=== PATIENT | male | born 1955 | race Two or more races ===

== ENCOUNTER 2025-05-06 11:18 | Emergency (ER) | payer MEDICARE, SELFPAY ==
[2025-05-06 11:33] VITALS: BP 166/87; PULSE 86; RESP 18; TEMP 36.5; O2SAT 95
--- NOTE | 2025-05-06 11:58 | XR_ITS ---
Examination: CT abdomen and pelvis without contrast. Coronal 3-D reconstructions. Sagittal 2-D reconstructions. Date and time of exam:May 06, 2025, 1346 hours INDICATIONS: Lower abdominal pain and hematuria today CTDI: vol (mGy): 7.56 DLP: (mGycm): 479 Technique: Axial images of the abdomen have been obtained, 3 mm slice thickness Intravenous contrast material has not been administered. Low dose protocols were performed. One or more of the following dose reduction techniques were used; automated exposure control, adjustment of the mA and/or KV according to patient size, use of iterative reconstruction technique. Findings: Liver is irregular in contour Spleen not enlarged No gallstones No pancreatic or adrenal mass. Perinephric stranding Mild renal scar formation No renal or ureteral calculi, no hydronephrosis Aorta normal size No pericecal inflammatory change No bowel obstruction No diverticulitis 32 mm mass lateral bladder on this noncontrast study No significant prostatomegaly IMPRESSION: 32 mm mass posterior right lateral bladder, most consistent with bladder cancer Recommend urinary bladder sonography follow-up
--- NOTE | 2025-05-06 11:59 | PD.EDRME ---
Rapid Medical Screening Exam RME Arrival date/time: 05/06/25 11:18 70-year-old male presents emergency department complaints of hematuria patient reports he had episode 2 weeks ago reports he has concerns about hematuria Chief Complaint: Urogenital-Male Vital signs: Vital Signs Temperature 97.7 F 05/06/25 11:33 Pulse Rate 86 05/06/25 11:33 Respiratory Rate 18 05/06/25 11:33 Blood Pressure 166/87 H 05/06/25 11:33 Pulse Oximetry (%) 95 05/06/25 11:33 Oxygen Delivery Method Room Air 05/06/25 11:33
[2025-05-06 12:37] LABS: Basophils # (Auto) 0.1 Thou/mm3 (0.0-0.2); Basophils % (Auto) 1 % (0-2.5); Eosinophils # (Auto) 0.2 Thou/mm3 (0.0-0.5); Eosinophils % (Auto) 3 % (0-10); Hematocrit 43.0 % (41.0-53.0); Hemoglobin 14.8 g/dL (13.5-16.0); Immature Granulocytes Auto 0.03 Thou/mm3 (0.00-0.00); Lymphocytes # (Auto) 1.5 Thou/mm3 (1.0-4.8); Lymphocytes % (Auto) 25 % (10-50); Mean Corpuscular HGB Conc 34.4 g/dl (31.0-37.0); Mean Corpuscular Hemoglobin 30.6 pg (25.0-35.0); Mean Corpuscular Volume 89 fL (80-100); Monocytes # (Auto) 0.4 Thou/mm3 (0.0-0.8); Monocytes % (Auto) 6 % (0-12); Neutrophils # (Auto) 3.9 Thou/mm3 (1.8-7.7); Neutrophils % (Auto) 65 % (37-80); Nucleated Red Blood Cell # 0.00 Thou/mm3 (0.00-0.00); Nucleated Red Blood Cell % 0 /100 WBC (0); Platelet Count 233 Thou/mm3 (140-440); RDW Standard Deviation 40.9 fL (35.1-43.9); Red Blood Count 4.83 Miln/mm3 (4.50-5.90); White Blood Count 6.0 Thou/mm3 (3.8-10.6)
[2025-05-06 12:46] LABS: INR 1.0 (0.9-1.3); Partial Thromboplastin Time 27.3 Seconds (22.0-36.0); Prothrombin Time 10.6 Seconds (9.0-12.2)
[2025-05-06 12:59] LABS: Alanine Aminotransferase < 7 U/L (10-49); Albumin, Serum 4.0 gm/dL (3.4-4.8); Albumin/Globulin Ratio 1.8 (1.2-2.2); Alkaline Phosphatase 160 U/L (46-116); Anion Gap 7 (7-16); Aspartate Amino Transferase 16 U/L (0-34); BUN/Creatinine Ratio 11 Ratio (12-20); Bilirubin,Total 0.3 mg/dL (0.3-1.2); Blood Urea Nitrogen 8 mg/dL (9-23); Calcium 9.3 mg/dL (8.3-10.6); Calcium (Corrected) 9.3 mg/dL (8.5-10.1); Carbon Dioxide 29.5 mMol/L (20.0-31.0); Chloride 102 mMol/L (98-107); Creatinine (Component) 0.7 mg/dL (0.6-1.3); Globulin 2.2 gm/dL (2.3-3.5); Glucose 335 mg/dL (74-106); Osmolality,Calculated 286 (275-295); Potassium 4.0 mMol/L (3.4-5.1); Sodium 138 mMol/L (136-145); Total Protein 6.2 gm/dL (5.7-8.2); eGFR > 60 See Note
[2025-05-06 13:14] LABS: Collection Type, Urine Clean Catch; Squamous Epithelial Cell,Urine 0 /hpf (0-5)
[2025-05-06 13:27] LABS: Bilirubin,Urine Negative (Negative); Blood,Urine Negative (Negative); Clarity,Urine Clear (Clear/Hazy); Color,Urine Lt-Yellow (Lt Yel-Yel); Culture Indicated,Urine Not Indicated; Glucose, Urine 4+ (Negative); Ketones,Urine Negative (Negative); Leukocyte Esterase,Urine Negative (Negative); Nitrite,Urine Negative (Negative); PH,Urine 6.5 (5.0-7.0); Protein,Urine Negative (Neg - Trace); RBC,Urine 2 /hpf (0-3); Specific Gravity,Urine 1.028 (1.001-1.035); Urobilinogen,Urine Negative mg/dL (0.0-1.0); WBC,Urine 1 /hpf (0-5)
--- NOTE | 2025-05-06 15:07 | EDNOTE_ITS ---
ED Male Genitalurinary RME/HPI General Chief complaint: Urogenital-Male Stated complaint: Urinating blood clots X 10 days Time Seen by Provider: 05/06/25 14:20 Arrival date/time: 05/06/25 11:18 RME / HPI RME / HPI Narrative: 05/06/25 11:18 70-year-old male presents emergency department complaints of hematuria patient reports he had episode 2 weeks ago reports he has concerns about hematuria. It comes and goes, associated with dysuria. Patient denies any vomiting denies any dizziness denies any other complaints denies any history of cancer. Patient is not taking any blood thinner. Related Data Home Medications ?Medication ?Instructions ?Recorded ?Confirmed aspirin 81 mg tablet,delayed 81 mg PO QDAY 11/08/18 release (Adult Aspirin Regimen) cholecalciferol (vitamin D3) 25 1,000 unit PO QDAY 10/28 mcg (1,000 unit) capsule lisinopril 20 mg tablet 20 mg PO QDAY 11/08/18 metformin 500 mg tablet 500 mg PO BID 11/08/18 Previous Rx's ?Medication ?Instructions ?Recorded acetaminophen 650 mg 650 mg PO Q8H PRN fever or p ain 11/08/18 tablet,extended release #30 tabs ibuprofen 600 mg tablet 600 mg PO Q8H PRN fever or p ain 11/08/18 #30 tabs Allergies Allergy/AdvReac Type Severity Reaction Status Date / Time Penicillins Allergy Mild Fainting Verified 05/06/25 11:23 Review of Systems Review of Systems Narrative Review of Systems: Review of system reviewed and within normal limits except mentioned in HPI ED Exam Narrative Physical exam: VITAL SIGNS: Reviewed. GENERAL APPEARANCE: Alert and interactive, follows commands, no acute distress, HEAD AND FACE: Non-traumatic. ENT: PERRL, pink conjunctivitis, eyelid no trauma, Mucous membrane moist. NECK: Supple, nontender, no nuchal rigidity. CHEST: No tenderness, no crepitus, no paradoxical movement, no retractions. LUNGS: Clear, well ventilated, symmetric, no rales, no wheezing, no ronchi, no stridor, good breath sounds bilaterally. HEART: Regular rate, regular rhythm, no murmur, no gallops. ABDOMEN: Soft, positive bowel sounds, nondistended, no guarding, nontender, no rebound, no masses, RECTAL: Deferred. GENITAL: Deferred. NEUROLOGICAL: Gross motor function intact sensory function intact, Appropriate for age. MUSCULOSKELETAL: low back nontender, full range of motion. EXTREMITIES: Nontender, full range of motion. SKIN: Color pink, dry, no rash, no lacerations, no abrasions, no contusions. LYMPHATICS: Deferred. Course Quality Measures none Orders Category Date Time Status CT abdomen pelvis wo con Stat Exams 05/06/25 11:58 Completed CBC Stat Lab 05/06/25 12:18 Completed Comprehensive Metabolic Panel Stat Lab 05/06/25 12:18 Completed Partial Thromboplastin Time Stat Lab 05/06/25 12:18 Completed Prothrombin Time with INR Stat Lab 05/06/25 12:18 Completed UA, C/S IF [Urinalysis, C/S if Indicated] Stat Lab 05/06/25 13:01 Completed Vital Signs Vital signs: Vital Signs Temperature 97.7 F 05/06/25 11:33 Pulse Rate 86 05/06/25 11:33 Respiratory Rate 18 05/06/25 11:33 Blood Pressure 166/87 H 05/06/25 11:33 Pulse Oximetry (%) 95 05/06/25 11:33 Oxygen Delivery Method Room Air 05/06/25 11:33 Urogenital - Male MDM Narrative MDM Narrative:: 70-year-old male presents emergency department complaints of hematuria patient reports he had episode 2 weeks ago reports he has concerns about hematuria. It comes and goes, associated with dysuria. Patient denies any vomiting denies any dizziness denies any other complaints denies any history of cancer. Patient is not taking any blood thinner. Patient's workup today is negative for sign of anemia urinalysis no UTI. Patient CT scan of the abdomen showed bladder mass possibly malignancy. Results discussed with the patient, patient was advised to see PCP tomorrow and for re ferral to urologist to rule out bladder malignancy. Patient agrees with the plan. Patient was also given a copy of his CT scan of the abdomen pelvis. Patient data External records reviewed:: None Clinical information provided by:: patient Social determinants that could affect healthcare access:: none Patient has the following chronic illnesses:: None How is presenting disease/condition affected by chronic disease/condition?: no chronic disease Evaluation data The following diagnostics were reviewed and interpreted by me:: lab results and radiology exam(s) Lab and/or radiology exams considered but not ordered:: None Interpretation Summary: None Medications / Prescriptions Medications or Prescriptions considered but not ordered:: None Medication administrations:: None Consultations Consultation(s) initiated? (list below): No Diagnosis Urogenital Male Differential Diagnosis: urinary tract infection and other (Hematuria, bladder mass) Most likely diagnosis given after review of the tests above:: Hematuria, bladder mass Admission Indicated Admission indicated?: not indicated Explain why admission is indicated or not indicated:: None Admission Request Was there a request for admission?: No Disposition Plan Disposition Plan: Discharge Discharge Attestation Discharge Attestation: The patient was given an opportunity to ask questions and understood the discharge instructions. Discharge instructions specifically effects, indications for sooner follow up or return to the emergency department, and the expected course of current diagnosis. Patient condition: Stable Discharge Plan Plan Patient Disposition: HOME (Self Care) Discharge Disposition comment: Stable Prescriptions/Referrals Prescriptions/Med Rec: No Action metformin 500 mg tablet 500 mg PO BID lisinopril 20 mg tablet 20 mg PO QDAY aspirin [Adult Aspirin Regimen] 81 mg tablet,delayed release (DR/EC) 81 mg PO QDAY cholecalciferol (vitamin D3) 1,000 unit capsule 1,000 unit PO QDAY acetaminophen 650 mg tablet extended release 650 mg PO Q8H PRN (Reason: fever or pain) Qty: 30 0RF Rx Instructions: swallow whole; do not crush, chew, break, dissolve, cut, or open ibuprofen 600 mg tablet 600 mg PO Q8H PRN (Reason: fever or pain) Qty: 30 0RF Rx Instructions: prn pain / fever Referrals: Maxim Reid MD [Primary Care Provider] - In 1 week Problem List Clinical Impression: Hematuria, Bladder mass Patient/Caregiver Discharge Instructions Discharge Activity: activity as tolerated Education Materials: ED Hematuria Additional Instructions: Thank you for the opportunity for serving you today. You are stable for discharged . You are advised to: Follow-up with your PCP in 1 to 2 days and asked for referral to urologist due to bladder mass suspect malignancy Return to ED for worsening of symptoms Increase oral fluids Print Language: Luxembourgish Stand Alone Forms: Antonina Award Info., Patient Portal Info Letter KIERSTEN/CONSTANTINO Supervising Physician KIERSTEN/CONSTANTINO Supervising Physician: MD Kalyani
== END 2025-05-06 16:16 | disposition home or self-care (01) ==
PROVIDERS: Nurse Practitioner Primary Care; Emergency Provider Family Medicine; PCP Family Medicine
DX: N32.89 Other specified disorders of bladder (principal)
CPT/HCPCS: 36415; 74176; 80053; 81001; 85025; 85610; 85730; 99283

== ENCOUNTER → 2025-06-17 | Outpatient (BNVA) | payer MEDICARE, SELFPAY | END | disposition home or self-care (01) | PROVIDERS: PCP Family Medicine; Referring Provider Family Medicine; Visit Provider Urology | DX: N40.1 Benign prostatic hyperplasia with lower urinary tract symptoms (principal); N13.8 Other obstructive and reflux uropathy; R31.0 Gross hematuria; N32.89 Other specified disorders of bladder; I10 Essential (primary) hypertension; E11.9 Type 2 diabetes mellitus without complications; F17.210 Nicotine dependence, cigarettes, uncomplicated; Z71.6 Tobacco abuse counseling; Z71.3 Dietary counseling and surveillance; E66.9 Obesity, unspecified; Z68.29 Body mass index [BMI] 29.0-29.9, adult | CPT/HCPCS: 81003; 99213; G0463 ==

== ENCOUNTER → 2025-07-05 | Outpatient (CLI) | payer MEDICARE, SELFPAY ==
[2025-07-05 20:33] LABS: Prostate Specific Antigen 0.36 ng/mL (0-4.00)
== END | disposition home or self-care (01) ==
PROVIDERS: PCP Family Medicine; Referring Provider Urology; Visit Provider Urology
DX: N40.1 Benign prostatic hyperplasia with lower urinary tract symptoms (principal)
CPT/HCPCS: 36415; 84153

== ENCOUNTER 2025-07-07 09:25 | Day surgery (SDC) | payer MEDICARE, SELFPAY ==
[2025-07-06 12:14] VITALS: BMI 28.3
--- NOTE | 2025-07-06 12:31 | EKG_ITS ---
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
--- NOTE | 2025-07-06 15:30 | SUR.PREOP ---
Pt notified to come in at 0930 tomorrow.
[2025-07-06 17:54] LABS: Alanine Aminotransferase < 7 U/L (10-49); Albumin, Serum 4.5 gm/dL (3.4-4.8); Albumin/Globulin Ratio 2.0 (1.2-2.2); Alkaline Phosphatase 147 U/L (46-116); Anion Gap 7 (7-16); Aspartate Amino Transferase 15 U/L (0-34); BUN/Creatinine Ratio 18 Ratio (12-20); Bilirubin,Total 0.5 mg/dL (0.3-1.2); Blood Urea Nitrogen 14 mg/dL (9-23); Calcium 9.2 mg/dL (8.3-10.6); Calcium (Corrected) 9.2 mg/dL (8.5-10.1); Carbon Dioxide 29.6 mMol/L (20.0-31.0); Chloride 103 mMol/L (98-107); Creatinine (Component) 0.8 mg/dL (0.6-1.3); Estimated Creatinine Clearance 76.8 mL/min (>60); Globulin 2.2 gm/dL (2.3-3.5); Glucose 254 mg/dL (74-106); Osmolality,Calculated 288 (275-295); Potassium 4.4 mMol/L (3.4-5.1); Sodium 140 mMol/L (136-145); Total Protein 6.7 gm/dL (5.7-8.2); eGFR > 60 See Note
[2025-07-07] VITALS (8 sets, daily range): BP systolic 122–138; BP diastolic 75–93; PULSE 86–93; RESP 16–20; TEMP 36.1–36.4; O2SAT 97–100; BMI 29.2
--- NOTE | 2025-07-07 10:30 | CHAP ---
Visited with patient and had prayer.
--- NOTE | 2025-07-07 11:37 | SUR.PHASEI ---
1137 Patient arrived to recovery sleeping comfortably in [facility]- able to arouse with verbal prompting then drifts back to sleep, on oxygen 8L via oxy mask, breathing unlabored, vital signs stable, denies pain and nausea, urinary catheter 16F in place with leg secure; draining to gravity, report received from Naveen STERN and Aldo TUTTLE
--- NOTE | 2025-07-07 11:46 | ESOP_ITS ---
Date of Procedure 07/07/25 Pre Op Diagnosis BPH with urinary obstruction and LUTS, gross hematuria, possible bladder tumor and balanitis Post Op Diagnosis Same large bladder tumor occupying right posterior lateral wall of the bladder and right ureteral orifice, bladder neck tumor which was bleeding, there were small tumors in the bladder posterior bladder wall near the dome obstructive bilateral prostatic lobes, balanitis no phimosis Procedure Cystoscopic examination and fulguration of the bladder neck tumor which was bleeding to stop the bleeding and insertion of Miller catheter Findings 4 to 5 cm tumor right posterior lateral wall of the bladder, bladder neck tumor with bleeding, small bladder tumor posterior bladder wall near the dome of the bladder, BPH with obstructive bilateral prostatic lobe Procedure Description Indication for procedure this is a 70-year-old gentleman this patient has a history of smoking. He had intermittent gross hematuria he had a CAT scan of the abdomen and pelvis done this revealed a filling defect posterior lateral bladder wall right side rule out bladder tumor patient was recommended above pro cedure procedure and complications were discussed with patient in great detail informed consent is obtained Patient was brought to the operating room in a satisfactory condition after appropriate premedication was put on the operating table in a spine position he was appropriately identified by surgeon operating room staff site scope and indications of the procedure were reconfirmed with the patient informed consent is obtained He was put on the operating table in a spine position general anesthesia was given uneventfully patient was positioned in a dorsal lithotomy position parts were prepped and draped in the usual sterile fashion. This patient had balanitis. A #21 cystoscope was introduced into the bladder per urethra anterior urethra revealed no urethral stricture prostatic urethra revealed obstructive prostate lobe there was a tumor in the bladder neck area on the right side which was bleeding fulguration was carried out. No active bleeding was seen inside of the bladder and all the quadrant was carried out left ureteral orifice was effluxing clear urine right ureteral orifice was not identified he had a very large bladder tumor 4 to 5 cm occupying the posterior lateral bladder wall on the right side and there were small small tumor in the posterior bladder wall near the dome of the bladder. After fulguration of bladder neck tumor No active bleeding was seen at this time I inserted #16 Miller catheter after instrument was withdrawn gently balloon was inflated with 10 cc of water. Patient is going to be scheduled for TURBT and possible TURP procedure and complications are discussed with the patient and he is scheduled for the same under general anesthesia Anesthesia GETA Pathology / specimen None Estimated Blood Loss 2 Condition Stable Disposition PACU Surgeon Hugo Guadalupe MD Surgical Staff Operation Date: 07/07/25 11:45 Case Staff RETAIL PROPERTY MANAGER: Ed Rodriguez
--- NOTE | 2025-07-07 12:24 | SUR.PHASEII ---
1224 Dr. Guadalupe at bedside talking with patient, verbal order read-back received to discontinue arceo catheter, will patient order in EMR and follow order
--- NOTE | 2025-07-07 12:28 | SUR.PHASEII ---
1228 arceo catheter discontinued per MD order, patient tolerated well
--- NOTE | 2025-07-07 12:49 | SUR.PHASEII ---
patient disconnected from vital signs machine, dressed in his clothing, IV discontinued and is awaiting his ride
--- NOTE | 2025-07-07 13:30 | SUR.PHASEII ---
1330 patients ride arrived, discharge instructions given to patient and patients uncle, uncle signed discharge instructions. patient given all his belongings prior to discharge, transported via wheelchair and left in a private vehicle.
== END 2025-07-07 13:41 | disposition home or self-care (01) ==
PROVIDERS: Anesthesiology; PCP Family Medicine; Referring Provider Urology; Visit Provider Urology
PROC: 0T7B8ZZ Dilation of Bladder, Via Natural or Artificial Opening Endoscopic (ICD-10-PCS; CPT 52240; principal; 2025-07-07 11:30)
DX: D49.4 Neoplasm of unspecified behavior of bladder (principal); N40.1 Benign prostatic hyperplasia with lower urinary tract symptoms; N13.8 Other obstructive and reflux uropathy; R35.0 Frequency of micturition; N48.1 Balanitis; Z01.810 Encounter for preprocedural cardiovascular examination; R31.0 Gross hematuria
CPT/HCPCS: 52240; 36415; 80053; 93005; A4217; A4649; J1580; J2250; J2704; J3010

== ENCOUNTER 2025-07-21 14:34 | Observation (INO) | payer MEDICARE, SELFPAY ==
[2025-07-19 11:56] VITALS: BMI 29.5
[2025-07-19 14:01] LABS: Alanine Aminotransferase 13 U/L (10-49); Albumin, Serum 4.5 gm/dL (3.4-4.8); Albumin/Globulin Ratio 2.0 (1.2-2.2); Alkaline Phosphatase 143 U/L (46-116); Anion Gap 7 (7-16); Aspartate Amino Transferase 21 U/L (0-34); BUN/Creatinine Ratio 19 Ratio (12-20); Bilirubin,Total 0.5 mg/dL (0.3-1.2); Blood Urea Nitrogen 15 mg/dL (9-23); Calcium 9.1 mg/dL (8.3-10.6); Calcium (Corrected) 9.1 mg/dL (8.5-10.1); Carbon Dioxide 29.4 mMol/L (20.0-31.0); Chloride 104 mMol/L (98-107); Creatinine (Component) 0.8 mg/dL (0.6-1.3); Estimated Creatinine Clearance 78.3 mL/min (>60); Globulin 2.2 gm/dL (2.3-3.5); Glucose 184 mg/dL (74-106); Osmolality,Calculated 285 (275-295); Potassium 4.2 mMol/L (3.4-5.1); Sodium 140 mMol/L (136-145); Total Protein 6.7 gm/dL (5.7-8.2); eGFR > 60 See Note
[2025-07-21] VITALS (21 sets, daily range): BP systolic 121–144; BP diastolic 70–89; PULSE 68–104; RESP 14–92; TEMP 36.1–36.5; O2SAT 94–100; BMI 29.3
--- NOTE | 2025-07-21 07:25 | CHAP ---
Patient was sleeping. Prayed quietly by bed.
[2025-07-21] MEDS: ALBUTEROL RT 2.5 MG/3 ML NEBU INH (07:47)
[2025-07-21] MEDS: RINGERS LACTATED 1000 ML 1,000 ML 20 ML IV (07:48)
--- NOTE | 2025-07-21 10:45 | SUR.PHASEI ---
pt received from OR in recovery bay 5. pt asleep but responds to voice, breathing unlabored on oxymask 8l. v/s stable. pt has 22fr [address]. report received from Adlo TUTTLE and Dr. Shelton.
--- NOTE | 2025-07-21 10:49 | PD.SUROPNT ---
Date of Procedure 07/21/25 Pre Op Diagnosis Gross hematuria, large bladder tumor occupying right posterior lateral wall right ureteral orifice not identified, BPH with urinary obstruction and obstructive prostate gland large median lobe Post Op Diagnosis Same Procedure Cystoscopic examination transurethral section of the bladder tumor and transurethral section of prostate gland partial Findings Obstructive prostate gland with a large median lobe large bladder tumor occupying right posterolateral wall 4 to 5 cm with extension into the bladder neck area and prostatic urethra Procedure Description Indication for procedure this is a 70-year-old gentleman. This patient has history of gross hematuria he underwent urological workup he had a cystoscopic examination done which revealed a obstructive prostate gland and large bladder tumor posterior lateral wall right side occupying the ureteral orifice with extension into bladder neck and prostatic urethra patient was recommended above procedure procedure and complications were discussed with patient in great detail informed consent is obtained Patient was brought to the operating room in a satisfactory condition after appropriate premedication he was appropriately identified by surgeon and operating room staff site scope and indication of the procedure were reconfirmed with the patient. He was positioned in a dorsal lithotomy position and he received perioperative antibiotics. 25 Corley resectoscope was introduced into the bladder. Per urethra examination of anterior urethra with out any urethral stricture prostatic urethra revealed obstructive prostate gland with large median lobe tumor seems to be extending into the bladder neck and prostatic urethra. Next the resectoscope was introduced into the bladder examination of bladder and all the quadrant was carried out there were 4 to 5 cm papillary tumor 2 in number occupying posterior lateral wall right side ureteral orifice could not be identified. With electric cautery with the cutting current I resected the tumor. And I resected the tumor in the bladder neck area right side and also part of the prostate gland. Fulguration of the base of the tumor was carried out. There was no active bleeding seen bladder was irrigated return of the urine was light color. Instrument was withdrawn gently 22 Indonesian Miller catheter was inserted into the bladder balloon was inflated with 20 cc of water bladder was again irrigated the return of the urine was light color patient having tolerated the procedure well was sent to recovery room in a satisfactory condition he will be admitted in the hospital for observation for 24 hours Anesthesia GETA Pathology / specimen Other (Bladder tumor bladder tissue, prostatic tissue) Estimated Blood Loss 30 Condition Stable Disposition PACU Surgeon Hugo Guadalupe MD Surgical Staff Operation Date: 07/21/25 07:30 Case Staff Anesthesiologist: Tavo Shelton
[2025-07-21] MEDS: FUROSEMIDE INJ 10 MG/ML VIAL 2 ML 20 MG IVP (11:10)
[2025-07-21] MEDS: fentaNYL CIT INJ 50 mCg/ML AMP 2ML 25 MCG IVP ×4 (11:39→14:18)
--- NOTE | 2025-07-21 11:50 | SUR.PHASEII ---
Received report on pt. s/p surgery from Mahesh TUTTLE. Pt. is AAOX3, c/o pain to lower abdomen and urgency to urinate and defecate. Educated pt. he has a catheter, bed parker placed under pt. Will provide pain medication per order.
--- NOTE | 2025-07-21 13:11 | PD.RESHP ---
Documentation for date of: 07/21/25 [facility] History of Present Illness History of present illness: 70-year-old male with a history of gross hematuria and a large bladder tumor, which was occupying the right posterior lateral wall and extending into the bladder neck and prostatic urethra. The patient underwent a cystoscopic examination, which revealed an obstructive prostate gland with a large median lobe, and a bladder tumor approximately 4-5 cm in size. The patient had no significant complications during the procedure, which included resection of the bladder tumor and part of the prostate gland. Post-operatively, he is being observed for 24 hours for any complications, though he has tolerated the procedure well so far. Review of Systems: Negative unless stated above Past medical history: Hypertension, diabetes. Surgical history: Patient denied, poor historian. Meds: Lisinopril, metformin (patient did not take). Allergies: Penicillin, unknown reaction. Exam Vital Signs Temp Pulse Resp BP Pulse Ox O2 Flow Rate 97.6 F 84 14 127/84 96 2 07/21/25 11:30 07/21/25 13:00 07/21/25 13:00 07/21/25 13:00 07/21/25 13:00 07/21/25 13:00 Narrative Exam General: The patient is alert, cooperative, but not the best historian. No acute distress noted. HEENT: No signs of infection or distress. Cardiovascular: Normal S1, S2, no murmurs. Respiratory: Clear to auscultation bilaterally. Abdomen: Soft, non-tender, no distention. Genitourinary: Miller catheter in place with light-colored urine output. No signs of infection. Extremities: No edema. Full range of motion. Neurological: Alert and oriented, no focal deficits. Results: Labs 07/22/25 05:00 07/22/25 05:17 Quality Measures Quality Measures VTE prophylaxis Advance care planning discussed with:: patient Medications Home Medications and Allergies Home Medications ?Medication ?Instructions ?Recorded ?Confirmed ?Type lisinopril 40 mg tablet 40 mg PO QDAY 07/06/25 07/21/25 History Allergies Allergy/AdvReac Type Severity Reaction Status Date / Time Penicillins Allergy Mild Fainting Verified 07/19/25 11:54 Visit Medications Acetaminophen (Acetaminophen 325 Mg Tablet) 650 mg PO Q6H PRN PRN Reason: Fever >101.5 Stop: 08/20/25 12:23 Finasteride (Finasteride 5 Mg Tablet) 5 mg PO QDAY [facility] Stop: 08/20/25 12:44 Lactated Ringer's (Lactated Ringers) 1,000 mls @ 20 mls/hr IV .Q24H ONE Stop: 07/22/25 05:59 Last Infusion: 07/21/25 11:28 Dose: Infused Morphine Sulfate (Morphine Sulf Inj 4 Mg/Ml Vial) 2 mg IVP Q4H PRN PRN Reason: PAIN SCALE 7-10 (Severe Stop: 07/26/25 12:23 Ondansetron HCl (Ondansetron Inj 2 Mg/Ml Inj 2 Ml) 4 mg IVP Q6H PRN; Protocol PRN Reason: NAUSEA OR VOMITING Stop: 08/20/25 12:23 Oxycodone/Acetaminophen (Oxycodone/Apap 5/325 Tablet) 1 tab PO Q6H PRN PRN Reason: PAIN SCALE 4-6 (Moderate Stop: 07/26/25 12:23 Pantoprazole Sodium (Pantoprazole Inj 40 Mg Vial) 40 mg IVP QDAY [facility] Stop: 08/21/25 08:59 Tamsulosin HCl (Tamsulosin Hcl 0.4 Mg Capsule) 0.4 mg PO QDAY [facility] Stop: 08/20/25 12:44 Discontinued Medications Albuterol (Albuterol Rt 2.5 Mg/3 Ml Nebu) 2.5 mg INH X1 ONE Stop: 07/21/25 07:43 Last Admin: 07/21/25 07:47 Dose: 2.5 mg Fentanyl Citrate (Fentanyl Cit Inj 50 Mcg/Ml Amp 2ml) 25 mcg IVP Q5M PRN; Protocol PRN Reason: PAIN SCALE 7-10 (Severe Stop: 07/21/25 12:53 Last Admin: 07/21/25 12:09 Dose: 25 mcg Fentanyl Citrate (Fentanyl Cit Inj 50 Mcg/Ml Amp 2ml) 25 mcg IVP Q5M PRN; Protocol PRN Reason: PAIN SCALE 4-6 (Moderate Stop: 07/21/25 12:53 Last Admin: 07/21/25 11:39 Dose: 25 mcg Fentanyl Citrate (Fentanyl Cit Inj 50 Mcg/Ml Amp 2ml) 25 mcg IVP Q5M PRN; Protocol PRN Reason: PAIN SCALE 1-3 (mild Stop: 07/21/25 12:53 Furosemide (Furosemide Inj 10 Mg/Ml 4ml Vial) 20 mg IVP X1 ONE Stop: 07/21/25 10:51 Last Admin: 07/21/25 11:28 Dose: Not Given Furosemide (Furosemide Inj 10 Mg/Ml Vial 2 Ml) 20 mg IVP X1 ONE Stop: 07/21/25 11:16 Last Admin: 07/21/25 11:10 Dose: 20 mg Gentamicin Sulfate 160 mg/ (Sodium Chloride) 104 mls @ 100 mls/hr IV X1 ONE Stop: 07/21/25 07:02 Mitomycin (Mitomycin Bladder Inst 20 Mg/ 40 Ml Syringe) 40 mg IS X1 ONE Stop: 07/21/25 08:52 Last Admin: 07/21/25 11:29 Dose: Not Given Ondansetron HCl (Ondansetron Inj 2 Mg/Ml Inj 2 Ml) 4 mg IVP X1 ONE Stop: 07/21/25 10:54 Assessment & Plan Plan 70-year-old male post-op for transurethral resection of a bladder tumor and prostate gland, stable with normal urine output and no complications, being observed for 24 hours. #Post-operative status s/p Bladder tumor and partial prostate resection The patient is stable post-operatively with no signs of complications. Urine output is normal, and there is no active bleeding. Miller catheter in place with light-colored urine output. Plan: -Continue monitoring for 24 hours post-op. -Keep Miller catheter in place, ensure light hydration, and monitor for any signs of infection or bleeding. -Pain management: Continue [place] 5, morphine for breakthrough. #Hypertension The patient has a history of hypertension, currently managed on lisinopril. Current BP: 127/84, which is within normal limits for today. Plan: -Continue lisinopril as prescribed. -Monitor blood pressure. #Diabetes Mellitus The patient stopped metformin due to side effects. Blood glucose this morning was 158 mg/dL. Plan: -Start sliding scale insulin as needed for glucose control during hospitalization. -ACHS checks. -Follow-up with PCP regarding management. ----- Plan discussed with attending physician Dr. Trammell and senior resident Dr. Kayla Song MD PGY-1 Internal Medicine Attending Provider Attestation/Addendum I have examined the patient, reviewed labs and imaging findings, discussed the case with the resident(s), and reviewed entered orders. I agree with the plan of care as outlined in this note, with these additional summaries/recommendations: After examination of the patient and review of the clinical data, I feel that this patient needs admission to the hospital for further treatment and evaluation. Patient is a 70-year-old male with a medical history of BPH, primary hypertension, and bladder mass who presents to [facility] emergency department on 07/21/2025 for cystoscopic examination transurethral resection of bladder tumor and transurethral section of prostate gland which was partial. Findings revealed obstructive prostate gland with a large median lobe and large bladder tumor occupying right posterior lateral wall with extension into the bladder neck area. Hospitalist team was contacted by urology for observation of gross hematuria and pain management. Patient will be admitted to observation and we will monitor overnight. Continue pain management and home antihypertensives. Patient updated on the plan and agreement. All questions answered to satisfaction. Please see residents note for additional details and management. Dr. Jp MD
--- NOTE | 2025-07-21 14:35 | SUR.PHASEII ---
pt awake and alert, breathing unlabored on room air. v/s stable. pt has 22fr [address] in place. v/s stable. report called to Susy Macedo. pt will be transferred to room at this time.
[2025-07-21] MEDS: FINASTERIDE 5 MG TABLET PO (16:09)
[2025-07-21] MEDS: TAMSULOSIN HCL 0.4 MG CAPSULE PO (16:09)
[2025-07-21 16:15] LABS: Basophils # (Auto) 0.0 Thou/mm3 (0.0-0.2); Basophils % (Auto) 0 % (0-2.5); Eosinophils # (Auto) 0.0 Thou/mm3 (0.0-0.5); Eosinophils % (Auto) 0 % (0-10); Hematocrit 42.7 % (41.0-53.0); Hemoglobin 14.8 g/dL (13.5-16.0); Immature Granulocytes Auto 0.03 Thou/mm3 (0.00-0.00); Lymphocytes # (Auto) 0.5 Thou/mm3 (1.0-4.8); Lymphocytes % (Auto) 6 % (10-50); Mean Corpuscular HGB Conc 34.7 g/dl (31.0-37.0); Mean Corpuscular Hemoglobin 30.5 pg (25.0-35.0); Mean Corpuscular Volume 88 fL (80-100); Monocytes # (Auto) 0.1 Thou/mm3 (0.0-0.8); Monocytes % (Auto) 1 % (0-12); Neutrophils # (Auto) 8.2 Thou/mm3 (1.8-7.7); Neutrophils % (Auto) 93 % (37-80); Nucleated Red Blood Cell # 0.00 Thou/mm3 (0.00-0.00); Nucleated Red Blood Cell % 0 /100 WBC (0); Platelet Count 255 Thou/mm3 (140-440); RDW Standard Deviation 39.0 fL (35.1-43.9); Red Blood Count 4.85 Miln/mm3 (4.50-5.90); White Blood Count 8.8 Thou/mm3 (3.8-10.6)
[2025-07-21 16:56] LABS: Alanine Aminotransferase 10 U/L (10-49); Albumin, Serum 4.3 gm/dL (3.4-4.8); Albumin/Globulin Ratio 2.0 (1.2-2.2); Alkaline Phosphatase 133 U/L (46-116); Anion Gap 8 (7-16); Aspartate Amino Transferase 19 U/L (0-34); BUN/Creatinine Ratio 11 Ratio (12-20); Bilirubin,Total 0.7 mg/dL (0.3-1.2); Blood Urea Nitrogen 9 mg/dL (9-23); Calcium 8.7 mg/dL (8.3-10.6); Calcium (Corrected) 8.7 mg/dL (8.5-10.1); Carbon Dioxide 27.7 mMol/L (20.0-31.0); Chloride 100 mMol/L (98-107); Creatinine (Component) 0.8 mg/dL (0.6-1.3); Estimated Creatinine Clearance 78.5 mL/min (>60); Globulin 2.2 gm/dL (2.3-3.5); Glucose 273 mg/dL (74-106); Osmolality,Calculated 280 (275-295); Potassium 4.2 mMol/L (3.4-5.1); Sodium 136 mMol/L (136-145); Total Protein 6.5 gm/dL (5.7-8.2); eGFR > 60 See Note
--- NOTE | 2025-07-21 20:02 | PC.NURSE ---
Report called to Sub=Acute to the Charge Nurse Lawrence TUTTLE.
[2025-07-21] MEDS: INSULIN LISPRO (AdmeLOG) 1 UNIT/0.01 ML UNIT SC (21:11)
[2025-07-22] VITALS: BP 132/77; PULSE 102; RESP 12; TEMP 36.1; O2SAT 95
[2025-07-22 03:40] VITALS: BP 116/77; PULSE 97; RESP 14; TEMP 36.1; O2SAT 96
[2025-07-22 04:00] VITALS: PULSE 97
[2025-07-22 06:07] LABS: Basophils # (Auto) 0.0 Thou/mm3 (0.0-0.2); Basophils % (Auto) 0 % (0-2.5); Eosinophils # (Auto) 0.0 Thou/mm3 (0.0-0.5); Eosinophils % (Auto) 0 % (0-10); Hematocrit 40.9 % (41.0-53.0); Hemoglobin 14.2 g/dL (13.5-16.0); Immature Granulocytes Auto 0.02 Thou/mm3 (0.00-0.00); Lymphocytes # (Auto) 1.7 Thou/mm3 (1.0-4.8); Lymphocytes % (Auto) 12 % (10-50); Mean Corpuscular HGB Conc 34.7 g/dl (31.0-37.0); Mean Corpuscular Hemoglobin 30.8 pg (25.0-35.0); Mean Corpuscular Volume 89 fL (80-100); Monocytes # (Auto) 0.9 Thou/mm3 (0.0-0.8); Monocytes % (Auto) 6 % (0-12); Neutrophils # (Auto) 11.2 Thou/mm3 (1.8-7.7); Neutrophils % (Auto) 81 % (37-80); Nucleated Red Blood Cell # 0.00 Thou/mm3 (0.00-0.00); Nucleated Red Blood Cell % 0 /100 WBC (0); Platelet Count 269 Thou/mm3 (140-440); RDW Standard Deviation 38.7 fL (35.1-43.9); Red Blood Count 4.61 Miln/mm3 (4.50-5.90); White Blood Count 13.9 Thou/mm3 (3.8-10.6)
[2025-07-22 07:04] VITALS: PULSE 100; RESP 18; RESP 96
[2025-07-22 07:05] LABS: Alanine Aminotransferase 8 U/L (10-49); Albumin, Serum 4.1 gm/dL (3.4-4.8); Albumin/Globulin Ratio 2.2 (1.2-2.2); Alkaline Phosphatase 116 U/L (46-116); Anion Gap 10 (7-16); Aspartate Amino Transferase 15 U/L (0-34); BUN/Creatinine Ratio 21 Ratio (12-20); Bilirubin,Total 0.7 mg/dL (0.3-1.2); Blood Urea Nitrogen 15 mg/dL (9-23); Calcium 8.8 mg/dL (8.3-10.6); Calcium (Corrected) 8.8 mg/dL (8.5-10.1); Carbon Dioxide 26.7 mMol/L (20.0-31.0); Chloride 101 mMol/L (98-107); Creatinine (Component) 0.7 mg/dL (0.6-1.3); Estimated Creatinine Clearance 92.7 mL/min (>60); Globulin 1.9 gm/dL (2.3-3.5); Glucose 170 mg/dL (74-106); Magnesium 1.9 mg/dL (1.6-2.6); Osmolality,Calculated 280 (275-295); Potassium 3.9 mMol/L (3.4-5.1); Sodium 138 mMol/L (136-145); Total Protein 6.0 gm/dL (5.7-8.2); eGFR > 60 See Note
[2025-07-22] MEDS: INSULIN LISPRO (AdmeLOG) 1 UNIT/0.01 ML UNIT SC ×2 (07:31→11:43)
[2025-07-22 08:00] VITALS: BP 124/72; PULSE 101; PULSE 94; RESP 20; TEMP 36.2; O2SAT 95
[2025-07-22] MEDS: FINASTERIDE 5 MG TABLET PO (08:39)
[2025-07-22] MEDS: TAMSULOSIN HCL 0.4 MG CAPSULE PO (08:39)
--- NOTE | 2025-07-22 09:15 | ESDS_ITS ---
Planned Discharge Date 07/22/25 DS: Providers Provider Date of admission: 07/21/25 14:34 Primary care physician: Maxim Reid MD Admitting Provider: Hugo Guadalupe MD Attending Provider on Admission: Yann Trmamell MD Consults: 07/21/25 11:16 Consult to Adult Hospitalist Urgent Comment: Consulting Provider: Yann Trammell Attending Provider on DC: Yann Trammell MD Discharging Provider: Didi Song MD DS: Diagnosis Problem List Completed Was Problem List Reviewed/Reconciled?: Yes Hospital Course Hospital Course Hospital course: Mr. 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 A Miller catheter was placed intra-operatively, and there was no active bleeding at the conclusion of the case. During observation, the patient remained hemodynamically stable. Urine output was consistently adequate with blood-tinged urine but no clots, which is expected post-operatively. He reported mild burning with the Miller catheter but denied suprapubic pain, bladder pressure, fever, or chills. His white count increased postoperatively (8.8 -> 13.9), consistent with post-surgical leukocytosis, and he remained afebrile and clinically stable. The patient tolerated diet, ambulated, and had well-controlled pain. He had not had a bowel movement since surgery but had no abdominal pain, distention, nausea, or vomiting. A bowel regimen was initiated. Spoke with Dr. Guadalupe from Urology, who reviewed the patient?s symptoms and post-operative course and recommended the following discharge plan: * Start levofloxacin 500 mg daily for 5 days (one dose given inpatient; patient to continue 4 additional days). * Continue tamsulosin and finasteride. * Discharge with Miller catheter in place. * Follow up in clinic on Saturday, at which time Dr. Guadalupe will reassess and remove the Miller catheter. The patient is clinically stable, tolerating oral intake, has adequate Miller drainage, and is appropriate for discharge today. Diagnosis during admission: #Post-operative status s/p Bladder tumor and partial prostate resection #Hypertension #Diabetes Mellitus Discharge Instructions: -Medications: * Levofloxacin 500 mg PO daily for 5 days * One dose given inpatient today; patient to take 4 additional daily doses starting tomorrow. * Continue Tamsulosin 0.4 mg PO daily. * Continue Finasteride 5 mg PO daily. -Miller Catheter: * Discharge home with Miller catheter in place. * Ensure the catheter remains draining freely. * Expect light blood-tinged urine for the next several days. * Seek urgent medical attention for large clots, catheter blockage, severe suprapubic pain, or inability to drain. -Follow-Up: * Follow up with Dr. Guadalupe (Urology) on Saturday. * At that visit, urology will reassess the bladder, review pathology if av ailable, and remove the Miller catheter. * Follow up with PCP within 1-2 weeks regarding management of HTN and DM. -Return to ED if Fever, chills, Worsening abdominal or suprapubic pain, Catheter not draining, Dark red urine with clots. ----- Plan discussed with attending physician Dr. Jp Song MD PGY-1 Internal Medicine Time Spent with Patient Time attestation: Total time spent providing and/or coordinating discharge services: Time spent: Greater than 30 minutes Quality: VTE Deep Vein Thrombosis/Pulmonary Embolism Present on Admission: No Exam Vital Signs Temp Pulse Resp BP Pulse Ox O2 Del Method O2 Flow Rate 97.1 F 94 20 124/72 95 Room Air 2 07/22/25 08:00 07/22/25 08:00 07/22/25 08:00 07/22/25 08:00 07/22/25 08:00 07/22/25 08:00 07/21/25 13:30 Narrative Exam General: The patient is alert, cooperative, but not the best historian. No acute distress noted. HEENT: No signs of infection or distress. Cardiovascular: Normal S1, S2, no murmurs. Respiratory: Clear to auscultation bilaterally. Abdomen: Soft, non-tender, no distention. Genitourinary: Miller catheter in place with light-colored urine output. No signs of infection. Extremities: No edema. Full range of motion. Neurological: Alert and oriented, no focal deficits. Discharge Plan Plan Patient Disposition: HOME (Self Care) Patient condition on transfer: Stable Care Plan Goals: Discharge Instructions: -Medications: * Levofloxacin 500 mg PO daily for 5 days * One dose given inpatient today; patient to take 4 additional daily doses starting tomorrow. * Continue Tamsulosin 0.4 mg PO daily. * Continue Finasteride 5 mg PO daily. -Miller Catheter: * Discharge home with Miller catheter in place. * Ensure the catheter remains draining freely. * Expect light blood-tinged urine for the next several days. * Seek urgent medical attention for large clots, catheter blockage, severe suprapubic pain, or inability to drain. -Follow-Up: * Follow up with Dr. Guadalupe (Urology) on Saturday. * At that visit, urology will reassess the bladder, review pathology if available, and remove the Miller catheter. * Follow up with PCP regarding HTN and DM management. -Return to ED if Fever, chills, Worsening abdominal or suprapubic pain, Catheter not draining, Dark red urine with clots. Prescriptions/Referrals Prescriptions/Med Rec: New levofloxacin 500 mg tablet 500 mg PO Q24H 4 Days Qty: 4 0RF hydrocodone-acetaminophen 5-325 mg tablet 1 tab PO BID MDD 10 mg-650 mg PRN (Reason: pain (scale score 7-10)) 7 Days Qty: 14 0RF Continued lisinopril 40 mg tablet 40 mg PO QDAY tamsulosin [Flomax] 0.4 mg capsule 0.4 mg PO Q24H Qty: 90 0RF Rx Instructions: administer 30 minutes after same meal each day; swallow whole with liquid; do not crush/chew/dissolve/open finasteride 5 mg tablet 5 mg PO QDAY Qty: 90 0RF Referrals: Hugo Guadalupe MD [Physician, Urology] Maxim Reid MD [Primary Care Provider, Family Practice] Patient/Caregiver Discharge Instructions Discharge Activity: activity as tolerated Education Materials: Surgery Anesthesia After, Indwelling Urinary Catheter Dc, Discharge Instructions Caring ..., Preventing Surgical Site Infections Print Language: Swedish Stand Alone Forms: Antonina Award Info., Patient Portal Info Letter, Work/Release Restrictions Discharge Order Discharge Orders: Discharge (Routine); Ordered 07/22/25 Ordered By: Didi Song Quality Discharge Quality Measures VTE prophylaxis Attestestation Attestation I have examined the patient, reviewed labs and imaging findings, discussed the case with the resident(s), and reviewed entered orders. I agree with the plan of care as outlined in this note. Time Spent: [address] Jp MD
[2025-07-22] MEDS: LEVOFLOXACIN 250 MG TABLET 500 MG PO (11:13)
[2025-07-22 12:00] VITALS: BP 145/86; PULSE 93; RESP 14; TEMP 36.3; O2SAT 94
== END 2025-07-22 13:45 | disposition home or self-care (01) ==
LOC: S2NX 15:08
PROVIDERS: Anesthesiology; Admitting Provider Urology; PCP Family Medicine; Referring Provider Urology; Visit Provider Student in an Organized Health Care Education/Training Program
PROC: 0TBB8ZZ Excision of Bladder, Via Natural or Artificial Opening Endoscopic (ICD-10-PCS; CPT 52235; principal; 2025-07-21 07:30)
DX: D49.4 Neoplasm of unspecified behavior of bladder (principal); C67.2 Malignant neoplasm of lateral wall of bladder; N40.1 Benign prostatic hyperplasia with lower urinary tract symptoms; N13.8 Other obstructive and reflux uropathy; E11.9 Type 2 diabetes mellitus without complications; I10 Essential (primary) hypertension; R31.0 Gross hematuria
CPT/HCPCS: 52235; 36415; 80053; 83735; 85025; 96361; 96374; 96375; 96376; A4217; A4649; C1894; G0378; J0131; J1100; J1580; J1815; J1938; J2250; J2371; J2405; J2470; J2704; J3010; J3490; J7120; A9270

== ENCOUNTER → 2025-07-26 | Outpatient (BNVA) | payer MEDICARE, SELFPAY | END | disposition home or self-care (01) | PROVIDERS: PCP Family Medicine; Referring Provider Family Medicine; Visit Provider Urology | DX: C67.9 Malignant neoplasm of bladder, unspecified (principal); E11.9 Type 2 diabetes mellitus without complications; I10 Essential (primary) hypertension; E66.9 Obesity, unspecified; Z68.30 Body mass index [BMI] 30.0-30.9, adult | CPT/HCPCS: 99212; G0463 ==